=== PATIENT | male | born 1950 | race Native Hawaiian/Other Pacific Islander ===

== ENCOUNTER 2017-09-05 14:36 | Outpatient (CLI) | payer OTHER, MEDICARE ==
[2017-09-05 16:21] LABS: PLATELET COUNT 380 K/uL (142-355)
== END 2017-09-05 20:58 | disposition home or self-care (01) ==
LOC: LABW 14:36
PROVIDERS: Internal Medicine
DX: I30.0 Acute nonspecific idiopathic pericarditis (principal); Z79.899 Other long term (current) drug therapy; R06.09 Other forms of dyspnea; Z51.81 Encounter for therapeutic drug level monitoring
CPT/HCPCS: 36415; 80053; 82043; 82570; 83880; 84439; 84443; 85027; 85651

== ENCOUNTER 2017-10-08 14:37 | Outpatient (CLI) | payer OTHER, MEDICARE ==
[2017-10-08 15:33] LABS: PLATELET COUNT 438 K/uL (142-355)
[2017-10-08 15:46] LABS: POTASSIUM 4.1 mmol/L (3.6-5.2)
== END 2017-10-08 20:25 | disposition home or self-care (01) ==
LOC: RAD 14:37
PROVIDERS: Physician Assistant
DX: R05 Cough (principal); I10 Essential (primary) hypertension; E77.8 Other disorders of glycoprotein metabolism; E87.6 Hypokalemia; M54.2 Cervicalgia; M40.03 Postural kyphosis, cervicothoracic region; Z86.79 Personal history of other diseases of the circulatory system; Z86.711 Personal history of pulmonary embolism
CPT/HCPCS: 36415; 80053; 85027; 87070

== ENCOUNTER 2018-05-03 10:41 | Outpatient (CLI) | payer OTHER, MEDICARE ==
[2018-05-03 11:02] LABS: PLATELET COUNT 296 K/uL (142-355)
[2018-05-03 11:22] LABS: POTASSIUM 4.1 mmol/L (3.6-5.2)
== END 2018-05-03 20:51 | disposition home or self-care (01) ==
LOC: LABW 10:41
PROVIDERS: Internal Medicine
DX: N40.0 Benign prostatic hyperplasia without lower urinary tract symptoms (principal); I10 Essential (primary) hypertension
CPT/HCPCS: 36415; 80053; 80061; 81000; 84153; 84443; 85027